=== PATIENT | female | born 1970 | race Caucasian/White ===

== ENCOUNTER → 2020-07-26 | Outpatient (CLI) | payer OTHER ==
[2020-07-26 14:21] LABS: HEMOGLOBIN 15.4 gm/dl (12.3-15.3); RED BLOOD COUNT 5.06 M/UL (4.00-5.10); WHITE BLOOD COUNT 11.1 K/UL (4.5-11.0)
[2020-07-26 14:38] LABS: BUN/CREATININE RATIO 11 (0-10)
[2020-07-28 11:15] LABS: CHOLESTEROL, TOTAL 209 mg/dL (100-199); HDL SIZE 8.7 nm (>=9.2); HDL-C 23 mg/dL (>39); HDL-P (TOTAL) 17.8 umol/L (>=30.5); LARGE HDL-P <1.3 umol/L (>=4.8); LARGE VLDL-P 9.4 nmol/L (<=2.7); LDL SIZE 19.9 nm (>20.5); LDL SIZE 19.9 nm (>=20.8); LDL-C 153 mg/dL (0-99); LDL-P 2228 nmol/L (<1000); LP-IR SCORE 80 (<=45); SMALL LDL-P 1667 nmol/L (<=527); TRIGLYCERIDES 177 mg/dL (0-149); VLDL SIZE 52.9 nm (<=46.6)
== END ==
LOC: LAB 13:21
PROVIDERS: Emergency Medicine
DX: I10 Essential (primary) hypertension (principal); E78.2 Mixed hyperlipidemia; R07.89 Other chest pain; M79.605 Pain in left leg; R06.02 Shortness of breath
CPT/HCPCS: 36415; 80053; 80061; 83704; 84443; 84484; 85025; 85379

== ENCOUNTER → 2020-10-04 | Outpatient (CLI) | payer OTHER | LOC: NM 12:33 | DX: I11.0 Hypertensive heart disease with heart failure (principal); I50.9 Heart failure, unspecified; I43 Cardiomyopathy in diseases classified elsewhere; R00.2 Palpitations; I48.91 Unspecified atrial fibrillation; R60.0 Localized edema; R07.9 Chest pain, unspecified; R06.02 Shortness of breath; E78.5 Hyperlipidemia, unspecified | CPT/HCPCS: 78452; 93017; A9502; J2785 ==